=== PATIENT | male | born 2000 | race Caucasian/White ===

== ENCOUNTER 2021-11-30 19:22 | Emergency (ER) | payer OTHER ==
[2021-11-30] MEDS ORDERED: BENZONATATE 100 MG CAPSULE PO STA (19:51)
--- NOTE | 2021-11-30 19:53 | ED Physician Documentation ---
PD HPI URI - Stated complaint Stated Complaint: COUGH,SOA,POST COVID - Chief complaint Chief Complaint: Resp - History obtained from History obtained from: Patient - History of Present Illness Timing - onset: How many weeks ago (1) Timing details: Gradual onset Pain level now: 0 Associated symptoms: Dry cough, Dyspnea. No: Fever, Productive cough, Hemoptysis, Chest pain, NVD, Bilateral edema, Unilateral edema Worsened by: Position (lying supine (and thus worse at night when lying down to sleep)) - Additional information Additional information: c/o 1 week of nonproductive cough, dyspnea, symptoms x 1 week and worse at night when lying supine. Patient is COVID vaccinated without booster. He was COVID positive one month ago. Denies fever .He recently was diagnosed with sinus infection Review of Systems Constitutional: denies: Fever, Chills, Sweats Cardiac: reports: Reviewed and negative Respiratory: reports: Dyspnea, Cough. denies: Hemoptysis, Wheezing Musculoskeletal: denies: Extremity swelling PD PAST MEDICAL HISTORY - Past Medical History Past Medical History: Yes - Past Surgical History Past Surgical History: No - Present Medications Home Medications: Ambulatory Orders Medication Instructions Recorded Confirmed Benzonatate [Tessalon] 200 mg PO TID PRN #14 cap 11/30/21 - Allergies Allergies/Adverse Reactions: Allergies Allergy/AdvReac Type Severity Reaction Status Date / Time amoxicillin Allergy Hives Verified 11/30/21 19:27 - Social History Does the pt smoke?: No Smoking Status: Never smoker Does the pt drink ETOH?: No Does the pt have substance abuse?: No - Immunizations Immunizations are current?: Yes PD ED PE NORMAL - Vitals Vital signs reviewed: Yes - General General: Alert and oriented X 3, No acute distress, Well developed/nourished - Cardiac Cardiac: RRR, No murmur - Respiratory Respiratory: No respiratory distress, Other (good air flow bilaterally, no wheezing, rales, rhonchi. Diminished breath sounds right low lung field) Results - Vitals Vitals: Vital Signs - 24 hr 11/30/21 11/30/21 19:27 20:35 Temperature 36.9 C 36.8 C Heart Rate 98 82 Respiratory 16 16 Rate Blood Pressure 150/80 H 141/79 H O2 Saturation 98 98 Oxygen O2 Source Room air - Rads (name of study) chest xray Radiology: Prelim report reviewed, See rad report PD MEDICAL DECISION MAKING - ED course Complexity details: reviewed results, re-evaluated patient, considered differential, d/w patient ED course: URI symptoms with unremarkable chest xray. There is no wheezing and there is good air flow on auscultation (and thus steroids and/or MDI are not indicated). Given tessalon perles with rx provided for same. Departure - Departure Disposition: Home, Self Care Clinical Impression: Upper respiratory tract infection Qualifiers: URI type: unspecified URI Qualified Code(s): J06.9 - Acute upper respiratory infection, unspecified Condition: Good Instructions: ED Upper Resp Infec No Abx Tx Prescriptions: Benzonatate [Tessalon] 200 mg PO TID PRN #14 cap PRN Reason: Cough Comments: Your chest xray does not show evidence of an infectious process (such as pneumonia) at this time. Your lungs are clear on stethoscopic exam. Your symptoms are likely due to an upper respiratory tract infection and there are no specific medications to help eliminate this. Medications for the symptoms can sometimes help, such as dextromethorphan (over the counter cough suppressant) or tesselon perles (a different cough suppressant; a prescription for this medication has been electronically submitted to [facility] pharmacy in [place]) Discharge Date/Time: 11/30/21 20:35
[2021-11-30 20:37] VITALS: BP 141/79
--- NOTE | 2021-11-30 20:57 | XRAY Report ---
PROCEDURE: Chest 2 View X-Ray INDICATIONS: cough, dyspnea TECHNIQUE: 2 view(s) of the chest. COMPARISON: None. FINDINGS: Surgical changes and devices: None. Lungs and pleura: No pleural effusions or pneumothorax. Lungs are clear. Mediastinum: Mediastinal contours are normal. Heart size is normal. Bones and chest wall: No suspicious bony abnormalities. Soft tissues appear unremarkable. IMPRESSION: No evidence acute pulmonary process Reviewed by: Edin Baez MD on 11/30/2021 8:56 PM PST Approved by: Edin Baez MD on 11/30/2021 8:56 PM PST Station ID: [id number]
== END 2021-11-30 20:35 | disposition home or self-care (01) ==
LOC: ED 19:22
DX: J06.9 Acute upper respiratory infection, unspecified (principal)
CPT/HCPCS: 71046; 99283; A9270

== ENCOUNTER 2023-06-30 10:03 | Outpatient (CLI) | payer OTHER ==
[2023-06-30 10:16] LABS: BASOPHILS # (AUTO) 0.1 10^3/uL (0.0-0.1); BASOPHILS % (AUTO) 0.7 %; EOSINOPHILS # (AUTO) 0.4 10^3/uL (0.0-0.7); EOSINOPHILS % (AUTO) 5.1 %; HCT - HEMATOCRIT 46.6 % (42.0-52.0); LYMPHOCYTES # (AUTO) 2.2 10^3/uL (1.5-3.5); LYMPHOCYTES % (AUTO) 30.7 %; MEAN CORPUSCULAR HEMOGLOBIN 29.3 pg (27.0-31.0); MEAN CORPUSCULAR HGB CONC 34.3 g/dL (32.0-36.0); MEAN CORPUSCULAR VOLUME 85.3 fL (80.0-94.0); MEAN PLATELET VOLUME 9.2 fL (7.4-11.4); MONOCYTES # (AUTO) 0.6 10^3/uL (0.0-1.0); MONOCYTES % (AUTO) 8.1 %; PLT - PLATELET COUNT 281 10^3/uL (130-450); RED BLOOD COUNT 5.46 10^6/uL (4.70-6.10); RED CELL DISTRIBUTION WIDTH 13.2 % (12.0-15.0); WHITE BLOOD COUNT 7.2 x10^3/uL (4.8-10.8)
[2023-06-30 10:30] LABS: ALBUMIN 4.8 g/dL (3.2-5.5); ALBUMIN/GLOBULIN RATIO 1.8 (1.0-2.2); BILIRUBIN,TOTAL 0.5 mg/dL (0.2-1.0); CALCIUM 9.7 mg/dL (8.5-10.3); CREATININE 0.7 mg/dL (0.6-1.3); POTASSIUM 4.5 mmol/L (3.5-4.5); TOTAL PROTEIN 7.5 g/dL (6.4-8.9)
[2023-06-30 10:45] LABS: THYROID STIMULATING HORMONE 3.72 uIU/mL (0.34-5.60)
== END 2023-06-30 10:04 | disposition home or self-care (01) ==
LOC: LAB 10:03
PROVIDERS: ATTEND Physician Assistant
DX: R20.2 Paresthesia of skin (principal); Z13.9 Encounter for screening, unspecified
CPT/HCPCS: 36415; 80053; 82607; 84443; 85025

== ENCOUNTER 2023-08-18 10:51 | Outpatient (CLI) | payer OTHER ==
[2023-08-18] MEDS ORDERED: BARIUM SULFATE 450 ML BOTTLE PO ONE (15:12)
[2023-08-18] MEDS ORDERED: iohexoL-300 100 ML VIAL IVP ONE (15:13)
--- NOTE | 2023-08-18 15:35 | CT Report ---
PROCEDURE: ABDOMEN/PELVIS W INDICATIONS: LOWER ABD PAIN CONTRAST: 100ml Omni 300 TECHNIQUE: After the administration of intravenous contrast, 5 mm thick sections acquired from the diaphragms to the symphysis. 5 mm thick coronal and sagittal reformats were acquired. For radiation dose reducti on, the following was used: automated exposure control, adjustment of mA and/or kV according to daniel ent size. COMPARISON: None FINDINGS: Image quality: Excellent. Lung bases and heart: Unremarkable. Liver: Hepatic steatosis. Gallbladder and biliary tree: No radiopaque stones or wall thickening. No biliary dilation. Spleen: No splenomegaly. Pancreas: No pancreatic ductal dilation. Adrenals: No adrenal nodule. Kidneys and ureters: No hydronephrosis. No renal cystic lesion which requires follow up. No solid mas s. 2 mm nonobstructing right-sided nephrolithiasis. Bowel and peritoneum: No bowel distension. No pathologic free fluid. Normal appendix. Lymph nodes: No central or retroperitoneal adenopathy. Vessels: No infrarenal aortic aneurysm. PELVIS Reproductive organs: Unremarkable. Bladder: No abnormal wall thickening, accounting for underdistension. Pelvic lymph nodes: No pelvic adenopathy by size criteria. Bones: No aggressive osseous abnormality. Other: Tiny umbilical hernia containing fat. IMPRESSION: No findings to explain the patient's lower abdominal pain. No significant diverticular disease. Kerrie l appendix. 2 mm nonobstructing right-sided nephrolithiasis. Mild hepatic steatosis. Reviewed by: Brennen Loera on 08/18/2023 3:33 PM PST Approved by: Brennen Loera on 08/18/2023 3:33 PM PST Station ID: [id number]
== END 2023-08-18 10:52 | disposition home or self-care (01) ==
LOC: DI 10:51
PROVIDERS: ATTEND Physician Assistant
DX: R10.30 Lower abdominal pain, unspecified (principal); N20.0 Calculus of kidney; K76.0 Fatty (change of) liver, not elsewhere classified
CPT/HCPCS: 74177; A9270; Q9967